=== PATIENT | female | born 1975 | race Caucasian/White ===

== ENCOUNTER 2020-12-20 10:16 | Inpatient (IN) | payer MEDICARE ==
[~2020-12-20] VITALS: Ht 157.5 cm; Wt 63.0 kg
[2020-12-20] MEDS ORDERED: PIPERACILLIN/TAZOBACTAM 3.375 GM in SODIUM CHLORIDE 0.9% 50ML 50 ML IV STA (10:20)
[2020-12-20] MEDS ORDERED: SODIUM CHLORIDE 0.9% 1000ML 1,000 ML IV STA (10:20)
[2020-12-20] MEDS ORDERED: SODIUM CHLORIDE 0.9% 100 ML ONE (10:44)
[2020-12-20] MEDS ORDERED: IOPAMIDOL 370 MG/ML 200 ML INFUS..BTL INJ ONE ×2 (10:44→14:09)
[2020-12-20] MEDS ORDERED: SODIUM CHLORIDE 0.9% 250ML 250 ML IV ONE (10:45)
[2020-12-20 11:14] LABS: BASOPHILS % 0.3 % (0.0-1.0); EOSINOPHILS % 0.7 % (0.0-6.0); HEMATOCRIT 24.7 % (34.2-44.1); HEMOGLOBIN 8.2 g/dL (12.0-16.0); LYMPHOCYTES # (AUTO) 0.7 (1.0-3.2); LYMPHOCYTES % 12.1 % (18.0-39.1); MEAN CORPUSCULAR HEMOGLOBIN 32.9 pg (28-32); MEAN CORPUSCULAR HGB CONC 33.2 g/dL (31-35); MEAN CORPUSCULAR VOLUME 99.2 fL (81-99); MONOCYTES # (AUTO) 0.3 (0.2-0.8); MONOCYTES % 5.6 % (4.4-11.3); NEUTROPHILS # (AUTO) 4.6 (2.1-6.9); NEUTROPHILS % 79.6 % (38.7-80.0); PLATELET COUNT 217 x10e3/uL (140-360); RED BLOOD COUNT 2.49 x10e6/uL (3.6-5.1); RED CELL DISTRIBUTION WIDTH 13.2 % (11.7-14.4)
[2020-12-20 11:43] LABS: ALANINE AMINOTRANSFERASE 21 IU/L (0-55); ALBUMIN 3.4 g/dL (3.5-5.0); ALBUMIN/GLOBULIN RATIO 1.4 (0.8-2.0); ALKALINE PHOSPHATASE 44 IU/L (40-150); ANION GAP 14.5 mmol/L (8-16); BLOOD UREA NITROGEN 47 mg/dL (7-26); BUN/CREATININE RATIO 52 (6-25); CALCIUM 7.8 mg/dL (8.4-10.2); CARBON DIOXIDE 17 mmol/L (22-29); CHLORIDE 107 mmol/L (98-107); CREATINE KINASE 14 IU/L (29-168); EST GLOMERULAR FILTRATION RATE 68 ML/MIN (60-); GLUCOSE 163 mg/dL (74-118); LIPASE 16 U/L (8-78); POTASSIUM 3.5 mmol/L (3.5-5.1); SODIUM 135 mmol/L (136-145)
[2020-12-20] MEDS ORDERED: OCTREOTIDE ACETATE 500 MCG in SODIUM CHLORIDE 0.9% 250ML 250 ML IV STA (12:03)
[2020-12-20 12:14] LABS: B-TYPE NATRIURETIC PEPTIDE2 < 10.0 pg/mL (0-100)
[2020-12-20] MEDS ORDERED: ONDANSETRON HCL INJ 2MG/ML 2ML 2 MG/ML VIAL IV PRN (12:15)
[2020-12-20] MEDS ORDERED: SODIUM CHLORIDE 0.9% 250ML 250 ML ONE ×2 (12:49→17:26)
[2020-12-20] MEDS: OCTREOTIDE ACETATE 500 MCG in SODIUM CHLORIDE 0.9% 250ML 249 ML IV SCH ×2 (13:02→22:34)
[2020-12-20 13:10] LABS: INR 0.99; PROTHROMBIN TIME 13.7 seconds (11.9-14.5)
[2020-12-20] MEDS ORDERED: FENTANYL CITRATE/PF 100MCG/2 ML INJ ONE (13:53)
[2020-12-20] MEDS ORDERED: MIDAZOLAM HCL 2 MG/2 ML VIAL ONE (13:53)
[2020-12-20] MEDS ORDERED: LIDOCAINE HCL 2% LOCAL 20 ML VIAL ONE (14:08)
[2020-12-20] MEDS ORDERED: HEPARIN SOD/SOD CHLORIDE 1,000 ML ONE (14:09)
[2020-12-20 15:58] LABS: CREATINE KINASE MB 0.3 ng/mL (0-5.0)
[2020-12-20 16:43] VITALS: BP 105/78
[2020-12-20 17:00] VITALS: BP 90/71
[2020-12-20] MEDS: Pantoprazole IV 40 MG in SODIUM CHLORIDE 0.9% 50ML 50 ML IV SCH ×2 (17:47→22:00)
[2020-12-20 18:00] VITALS: BP 98/67
[2020-12-20] MEDS: MORPHINE SULFATE INJ 4 MG/ML INJ 1ML IV PRN ×2 (18:36→22:46)
[2020-12-20] MEDS: ONDANSETRON HCL INJ 2MG/ML 2ML 2 MG/ML VIAL IV PRN (19:13)
[2020-12-20] MEDS ORDERED: ZOLPIDEM TARTRATE 5 MG TAB PO PRN (21:00)
[2020-12-20 23:27] LABS: FERRITIN 172.31 ng/mL (4.63-204.00)
[2020-12-21] VITALS (7 sets, daily range): BP systolic 94–109; BP diastolic 57–81
[2020-12-21 00:10] LABS: BASOPHILS % 0.6 % (0.0-1.0); EOSINOPHILS # (AUTO) 0.1 (0.0-0.4); EOSINOPHILS % 2.3 % (0.0-6.0); HEMATOCRIT 27.6 % (34.2-44.1); HEMOGLOBIN 9.2 g/dL (12.0-16.0); LYMPHOCYTES # (AUTO) 0.7 (1.0-3.2); LYMPHOCYTES % 13.9 % (18.0-39.1); MEAN CORPUSCULAR HEMOGLOBIN 31.9 pg (28-32); MEAN CORPUSCULAR HGB CONC 33.3 g/dL (31-35); MEAN CORPUSCULAR VOLUME 95.8 fL (81-99); MONOCYTES # (AUTO) 0.4 (0.2-0.8); MONOCYTES % 9.1 % (4.4-11.3); NEUTROPHILS # (AUTO) 3.4 (2.1-6.9); NEUTROPHILS % 72.2 % (38.7-80.0); PLATELET COUNT 146 x10e3/uL (140-360); RED BLOOD COUNT 2.88 x10e6/uL (3.6-5.1); RED CELL DISTRIBUTION WIDTH 14.5 % (11.7-14.4)
[2020-12-21 00:23] LABS: CREATINE KINASE 15 IU/L (29-168)
[2020-12-21] MEDS: ONDANSETRON HCL INJ 2MG/ML 2ML 2 MG/ML VIAL IV PRN ×3 (00:43→14:35)
[2020-12-21] MEDS: Pantoprazole IV 40 MG in SODIUM CHLORIDE 0.9% 50ML 50 ML IV SCH ×5 (02:33→22:21)
[2020-12-21] MEDS: PROMETHAZINE 25MG/ NS 50ML (IV) IV PRN ×3 (04:23→18:51)
[2020-12-21] MEDS ORDERED: PROMETHAZINE 25MG/SOD CHL 0.9% 50 ML IV ONE (04:31)
[2020-12-21 05:19] LABS: BASOPHILS % 0.5 % (0.0-1.0); EOSINOPHILS # (AUTO) 0.1 (0.0-0.4); EOSINOPHILS % 2.8 % (0.0-6.0); HEMATOCRIT 26.3 % (34.2-44.1); HEMOGLOBIN 8.6 g/dL (12.0-16.0); LYMPHOCYTES # (AUTO) 0.6 (1.0-3.2); LYMPHOCYTES % 15.2 % (18.0-39.1); MEAN CORPUSCULAR HEMOGLOBIN 31.5 pg (28-32); MEAN CORPUSCULAR HGB CONC 32.7 g/dL (31-35); MEAN CORPUSCULAR VOLUME 96.3 fL (81-99); MONOCYTES # (AUTO) 0.3 (0.2-0.8); MONOCYTES % 7.5 % (4.4-11.3); NEUTROPHILS # (AUTO) 2.8 (2.1-6.9); NEUTROPHILS % 71.9 % (38.7-80.0); PLATELET COUNT 137 x10e3/uL (140-360); RED BLOOD COUNT 2.73 x10e6/uL (3.6-5.1); RED CELL DISTRIBUTION WIDTH 14.8 % (11.7-14.4)
[2020-12-21 05:31] LABS: ALBUMIN 3.2 g/dL (3.5-5.0); ALBUMIN/GLOBULIN RATIO 1.7 (0.8-2.0); CALCIUM 7.6 mg/dL (8.4-10.2); CREATININE, SERUM 0.67 mg/dL (0.57-1.11)
[2020-12-21] MEDS: OCTREOTIDE ACETATE 500 MCG in SODIUM CHLORIDE 0.9% 250ML 249 ML IV SCH ×2 (08:30→18:30)
[2020-12-21] MEDS: MORPHINE SULFATE INJ 4 MG/ML INJ 1ML IV PRN ×3 (08:41→19:27)
[2020-12-21] MEDS: FOLIC ACID 1 MG TAB PO SCH (09:00)
[2020-12-21] MEDS ORDERED: DICYCLOMINE HCL10 MG PO (11:07)
[2020-12-21] MEDS ORDERED: FLUOXETINE HCL20 MG PO (11:07)
[2020-12-21] MEDS ORDERED: BUSPIRONE HCL10 MG PO (11:07)
[2020-12-21] MEDS ORDERED: TOPAMAX100 MG PO (11:07)
[2020-12-21] MEDS ORDERED: NEURONTIN400 MG PO (11:07)
[2020-12-21] MEDS ORDERED: QUETIAPINE FUM100 MG PO (11:07)
[2020-12-21] MEDS ORDERED: KEPPRA500 MG PO (11:07)
[2020-12-21] MEDS ORDERED: PROPOFOL IV EMULSION 10 MG/ML 20 ML VIAL ONE (12:25)
[2020-12-21] MEDS ORDERED: LIDOCAINE HCL 2% LOCAL INJ 5 ML SDV VIAL INJ ONE (12:25)
[2020-12-21] MEDS ORDERED: FENTANYL CITRATE/PF 100MCG/2 ML INJ ONE (13:11)
[2020-12-21] MEDS ORDERED: MIDAZOLAM HCL 2 MG/2 ML VIAL ONE (13:11)
[2020-12-21 20:04] LABS: CLARITY,URINE SL CLOUDY (CLEAR); COLOR,URINE YELLOW (YELLOW); KETONES,URINE NEGATIVE (NEGATIVE); LEUKOCYTE ESTERASE ,URINE NEGATIVE (NEGATIVE); NITRITE,URINE NEGATIVE (NEGATIVE); PROTEIN,URINE DIPSTICK NEGATIVE (NEGATIVE); URINE UROBILINOGEN 0.2 mg/dL (0.2 - 1)
[2020-12-21 20:07] LABS: BACTERIA,URINE RARE /HPF; EPITHELIAL CELLS,URINE FEW /LPF; MUCUS,URINE FEW (RARE); RBC,URINE 0-5 /HPF (0-5); WBC,URINE (MAN) 0-5 /HPF (0-5)
[2020-12-21] MEDS: LEVETIRACETAM 500 MG TAB PO SCH (20:45)
[2020-12-21] MEDS: QUETIAPINE FUMARATE 100 MG TAB PO SCH (20:45)
[2020-12-21] MEDS: GABAPENTIN 300 MG CAP PO SCH (20:45)
[2020-12-21] MEDS: TOPIRAMATE 100 MG TAB PO SCH (21:12)
[2020-12-22] VITALS (11 sets, daily range): BP systolic 83–105; BP diastolic 53–69
[2020-12-22] MEDS: Pantoprazole IV 40 MG in SODIUM CHLORIDE 0.9% 50ML 50 ML IV SCH ×5 (03:14→23:15)
[2020-12-22] MEDS: OCTREOTIDE ACETATE 500 MCG in SODIUM CHLORIDE 0.9% 250ML 249 ML IV SCH ×4 (04:30→23:45)
[2020-12-22 06:27] LABS: BASOPHILS % 0.3 % (0.0-1.0); EOSINOPHILS # (AUTO) 0.2 (0.0-0.4); EOSINOPHILS % 5.9 % (0.0-6.0); HEMOGLOBIN 7.3 g/dL (12.0-16.0); LYMPHOCYTES # (AUTO) 0.9 (1.0-3.2); LYMPHOCYTES % 27.6 % (18.0-39.1); MEAN CORPUSCULAR HEMOGLOBIN 32.6 pg (28-32); MEAN CORPUSCULAR HGB CONC 32.7 g/dL (31-35); MONOCYTES # (AUTO) 0.3 (0.2-0.8); MONOCYTES % 7.7 % (4.4-11.3); NEUTROPHILS # (AUTO) 1.8 (2.1-6.9); PLATELET COUNT 124 x10e3/uL (140-360); RED BLOOD COUNT 2.24 x10e6/uL (3.6-5.1); RED CELL DISTRIBUTION WIDTH 15.6 % (11.7-14.4)
[2020-12-22 06:29] LABS: MEAN CORPUSCULAR VOLUME 99.6 fL (81-99)
[2020-12-22 06:30] LABS: HEMATOCRIT 22.3 % (34.2-44.1)
[2020-12-22 06:40] LABS: ALBUMIN 2.8 g/dL (3.5-5.0); ALBUMIN/GLOBULIN RATIO 1.6 (0.8-2.0); ANION GAP 10.8 mmol/L (8-16); CALCIUM 7.5 mg/dL (8.4-10.2); CREATININE, SERUM 0.7 mg/dL (0.57-1.11); MAGNESIUM 1.9 MG/DL (1.3-2.1); POTASSIUM 3.8 mmol/L (3.5-5.1)
[2020-12-22] MEDS: MORPHINE SULFATE INJ 4 MG/ML INJ 1ML IV PRN ×3 (07:26→22:00)
[2020-12-22] MEDS: ONDANSETRON HCL INJ 2MG/ML 2ML 2 MG/ML VIAL IV PRN (07:26)
[2020-12-22] MEDS: PROMETHAZINE 25MG/ NS 50ML (IV) IV PRN ×3 (08:34→20:34)
[2020-12-22] MEDS: FLUOXETINE HCL 20 MG CAP PO SCH ×2 (09:20→17:00)
[2020-12-22] MEDS: LEVETIRACETAM 500 MG TAB PO SCH ×2 (09:20→17:00)
[2020-12-22] MEDS: FOLIC ACID 1 MG TAB PO SCH (09:20)
[2020-12-22] MEDS: BUSPIRONE HCL 10 MG TABLET PO SCH ×3 (09:20→20:34)
[2020-12-22] MEDS: GABAPENTIN 300 MG CAP PO SCH ×3 (09:20→20:34)
[2020-12-22] MEDS: QUETIAPINE FUMARATE 100 MG TAB PO SCH ×2 (09:20→17:00)
[2020-12-22] MEDS: TOPIRAMATE 100 MG TAB PO SCH ×2 (10:27→17:00)
[2020-12-22] MEDS ORDERED: IOPAMIDOL 370 MG/ML 200 ML INFUS..BTL INJ ONE ×3 (10:35→15:56)
[2020-12-22] MEDS ORDERED: SODIUM CHLORIDE 0.9% 100 ML ONE (10:35)
[2020-12-22] MEDS ORDERED: SODIUM CHLORIDE 0.9% 250ML 250 ML ONE ×2 (14:29→22:02)
[2020-12-22] MEDS ORDERED: SODIUM CHLORIDE 0.9% 1000ML 1,000 ML IV ONE (15:15)
[2020-12-22] MEDS ORDERED: MIDAZOLAM HCL 2 MG/2 ML VIAL ONE (15:45)
[2020-12-22] MEDS ORDERED: FENTANYL CITRATE/PF 100MCG/2 ML INJ ONE (15:45)
[2020-12-22] MEDS ORDERED: HEPARIN SOD/SOD CHLORIDE 1,000 ML ONE (15:55)
[2020-12-22] MEDS ORDERED: LIDOCAINE HCL 2% LOCAL 20 ML VIAL ONE (15:57)
[2020-12-22] MEDS ORDERED: HYDROCODONE/APAP 5MG-325MG TAB ONE (18:00)
[2020-12-22] MEDS ORDERED: HYDROCODONE/APAP 5MG-325MG TAB PO ONE (18:00)
[2020-12-22 20:03] LABS: HEMATOCRIT 23.6 % (34.2-44.1); HEMOGLOBIN 7.6 g/dL (12.0-16.0)
[2020-12-23] VITALS (8 sets, daily range): BP systolic 89–131; BP diastolic 54–77
[2020-12-23] MEDS: PROMETHAZINE 25MG/ NS 50ML (IV) IV PRN ×4 (01:00→22:45)
[2020-12-23] MEDS: MORPHINE SULFATE INJ 4 MG/ML INJ 1ML IV PRN ×5 (02:27→20:36)
[2020-12-23] MEDS: OCTREOTIDE ACETATE 500 MCG in SODIUM CHLORIDE 0.9% 250ML 249 ML IV SCH ×3 (03:24→22:07)
[2020-12-23] MEDS: Pantoprazole IV 40 MG in SODIUM CHLORIDE 0.9% 50ML 50 ML IV SCH ×4 (03:24→22:04)
[2020-12-23] MEDS: FOLIC ACID 1 MG TAB PO SCH (08:00)
[2020-12-23] MEDS: GABAPENTIN 300 MG CAP PO SCH ×3 (08:00→21:16)
[2020-12-23] MEDS: BUSPIRONE HCL 10 MG TABLET PO SCH ×3 (08:00→21:16)
[2020-12-23] MEDS: TOPIRAMATE 100 MG TAB PO SCH ×2 (08:00→18:17)
[2020-12-23] MEDS: LEVETIRACETAM 500 MG TAB PO SCH ×2 (08:00→18:17)
[2020-12-23] MEDS: FLUOXETINE HCL 20 MG CAP PO SCH ×2 (08:00→18:17)
[2020-12-23] MEDS: QUETIAPINE FUMARATE 100 MG TAB PO SCH ×2 (08:00→18:17)
[2020-12-23 08:41] LABS: HEMATOCRIT 26.7 % (34.2-44.1); HEMOGLOBIN 8.6 g/dL (12.0-16.0)
[2020-12-23 14:31] LABS: HEMATOCRIT 29.4 % (34.2-44.1); HEMOGLOBIN 9.4 g/dL (12.0-16.0)
[2020-12-23 14:51] LABS: % IRON SATURATION 8 % (15-50); IRON 22 ug/dL (50-170); TOTAL IRON BINDING CAPACITY 260 ug/dL (261-478); TRANSFERRIN 186 mg/dL (180-382)
[2020-12-23 20:51] LABS: HEMATOCRIT 27.4 % (34.2-44.1); HEMOGLOBIN 8.7 g/dL (12.0-16.0)
[2020-12-24] VITALS (8 sets, daily range): BP systolic 93–174; BP diastolic 60–90
[2020-12-24] MEDS: Pantoprazole IV 40 MG in SODIUM CHLORIDE 0.9% 50ML 50 ML IV SCH ×5 (03:32→21:42)
[2020-12-24] MEDS: PROMETHAZINE 25MG/ NS 50ML (IV) IV PRN ×3 (04:03→21:30)
[2020-12-24] MEDS: MORPHINE SULFATE INJ 4 MG/ML INJ 1ML IV PRN ×4 (05:45→18:10)
[2020-12-24 06:17] LABS: ANION GAP 9.9 mmol/L (8-16); CALCIUM 7.5 mg/dL (8.4-10.2); CREATININE, SERUM 0.61 mg/dL (0.57-1.11); POTASSIUM 3.9 mmol/L (3.5-5.1)
[2020-12-24 08:47] LABS: BASOPHILS % 0.5 % (0.0-1.0); EOSINOPHILS # (AUTO) 0.2 (0.0-0.4); EOSINOPHILS % 3.7 % (0.0-6.0); LYMPHOCYTES # (AUTO) 0.7 (1.0-3.2); MEAN CORPUSCULAR HEMOGLOBIN 31.4 pg (28-32); MEAN CORPUSCULAR HGB CONC 32.1 g/dL (31-35); MEAN CORPUSCULAR VOLUME 97.6 fL (81-99); MONOCYTES # (AUTO) 0.4 (0.2-0.8); MONOCYTES % 9.4 % (4.4-11.3); NEUTROPHILS # (AUTO) 2.7 (2.1-6.9); NEUTROPHILS % 66.2 % (38.7-80.0); PLATELET COUNT 138 x10e3/uL (140-360); RED BLOOD COUNT 2.87 x10e6/uL (3.6-5.1)
[2020-12-24] MEDS: TOPIRAMATE 100 MG TAB PO SCH ×2 (08:51→18:13)
[2020-12-24] MEDS: OCTREOTIDE ACETATE 500 MCG in SODIUM CHLORIDE 0.9% 250ML 249 ML IV SCH ×2 (08:51→16:20)
[2020-12-24] MEDS: FLUOXETINE HCL 20 MG CAP PO SCH ×2 (08:51→18:13)
[2020-12-24] MEDS: FOLIC ACID 1 MG TAB PO SCH (08:51)
[2020-12-24] MEDS: BUSPIRONE HCL 10 MG TABLET PO SCH ×3 (08:51→22:00)
[2020-12-24] MEDS: GABAPENTIN 300 MG CAP PO SCH ×3 (08:51→21:30)
[2020-12-24] MEDS: QUETIAPINE FUMARATE 100 MG TAB PO SCH ×2 (08:51→18:13)
[2020-12-24] MEDS: LEVETIRACETAM 500 MG TAB PO SCH ×2 (08:51→18:13)
[2020-12-24] MEDS ORDERED: TOPIRAMATE 100 MG TAB PO SCH (09:00)
[2020-12-24] MEDS: IRON SUCROSE 100 MG in SODIUM CHLORIDE 0.9% 100 ML 100 ML IV SCH (14:08)
[2020-12-25] VITALS (8 sets, daily range): BP systolic 90–110; BP diastolic 53–69
[2020-12-25] MEDS: MORPHINE SULFATE INJ 4 MG/ML INJ 1ML IV PRN ×5 (00:15→23:30)
[2020-12-25] MEDS: ONDANSETRON HCL INJ 2MG/ML 2ML 2 MG/ML VIAL IV PRN (00:49)
[2020-12-25] MEDS: Pantoprazole IV 40 MG in SODIUM CHLORIDE 0.9% 50ML 50 ML IV SCH ×5 (01:15→21:15)
[2020-12-25] MEDS: PROMETHAZINE 25MG/ NS 50ML (IV) IV PRN ×3 (02:00→17:25)
[2020-12-25] MEDS: OCTREOTIDE ACETATE 500 MCG in SODIUM CHLORIDE 0.9% 250ML 249 ML IV SCH ×2 (02:30→12:30)
[2020-12-25 05:09] LABS: BASOPHILS % 0.4 % (0.0-1.0); EOSINOPHILS # (AUTO) 0.2 (0.0-0.4); EOSINOPHILS % 4.7 % (0.0-6.0); HEMATOCRIT 26.7 % (34.2-44.1); HEMOGLOBIN 8.5 g/dL (12.0-16.0); LYMPHOCYTES # (AUTO) 0.6 (1.0-3.2); LYMPHOCYTES % 13.5 % (18.0-39.1); MEAN CORPUSCULAR HEMOGLOBIN 31.1 pg (28-32); MEAN CORPUSCULAR HGB CONC 31.8 g/dL (31-35); MEAN CORPUSCULAR VOLUME 97.8 fL (81-99); MONOCYTES # (AUTO) 0.5 (0.2-0.8); MONOCYTES % 9.8 % (4.4-11.3); NEUTROPHILS # (AUTO) 3.3 (2.1-6.9); NEUTROPHILS % 70.3 % (38.7-80.0); PLATELET COUNT 136 x10e3/uL (140-360); RED BLOOD COUNT 2.73 x10e6/uL (3.6-5.1); RED CELL DISTRIBUTION WIDTH 17.8 % (11.7-14.4)
[2020-12-25 05:20] LABS: ALBUMIN 2.7 g/dL (3.5-5.0); ALBUMIN/GLOBULIN RATIO 1.1 (0.8-2.0); ANION GAP 11.1 mmol/L (8-16); CALCIUM 8.2 mg/dL (8.4-10.2); CREATININE, SERUM 0.65 mg/dL (0.57-1.11); MAGNESIUM 1.6 MG/DL (1.3-2.1); POTASSIUM 4.1 mmol/L (3.5-5.1)
[2020-12-25] MEDS: QUETIAPINE FUMARATE 100 MG TAB PO SCH ×2 (09:00→17:00)
[2020-12-25] MEDS: FLUOXETINE HCL 20 MG CAP PO SCH ×2 (09:00→17:00)
[2020-12-25] MEDS: FOLIC ACID 1 MG TAB PO SCH (09:00)
[2020-12-25] MEDS: BUSPIRONE HCL 10 MG TABLET PO SCH ×3 (09:00→21:00)
[2020-12-25] MEDS: GABAPENTIN 300 MG CAP PO SCH ×3 (09:00→21:00)
[2020-12-25] MEDS: LEVETIRACETAM 500 MG TAB PO SCH ×2 (09:00→17:00)
[2020-12-25] MEDS: TOPIRAMATE 100 MG TAB PO SCH ×2 (09:00→17:00)
[2020-12-25] MEDS: IRON SUCROSE 100 MG in SODIUM CHLORIDE 0.9% 100 ML 100 ML IV SCH (10:00)
[2020-12-26] MEDS: OCTREOTIDE ACETATE 500 MCG in SODIUM CHLORIDE 0.9% 250ML 249 ML IV SCH (00:12)
[2020-12-26 00:15] VITALS: BP 100/59
[2020-12-26] MEDS: PROMETHAZINE 25MG/ NS 50ML (IV) IV PRN ×2 (01:30→06:30)
[2020-12-26] MEDS: Pantoprazole IV 40 MG in SODIUM CHLORIDE 0.9% 50ML 50 ML IV SCH ×2 (02:15→07:15)
[2020-12-26] MEDS: MORPHINE SULFATE INJ 4 MG/ML INJ 1ML IV PRN (03:50)
[2020-12-26 04:53] LABS: BASOPHILS % 0.7 % (0.0-1.0); EOSINOPHILS # (AUTO) 0.2 (0.0-0.4); HEMATOCRIT 25.2 % (34.2-44.1); LYMPHOCYTES % 23.3 % (18.0-39.1); MEAN CORPUSCULAR HGB CONC 31.7 g/dL (31-35); MEAN CORPUSCULAR VOLUME 97.7 fL (81-99); MONOCYTES # (AUTO) 0.5 (0.2-0.8); NEUTROPHILS # (AUTO) 2.5 (2.1-6.9); NEUTROPHILS % 57.2 % (38.7-80.0); PLATELET COUNT 156 x10e3/uL (140-360); RED BLOOD COUNT 2.58 x10e6/uL (3.6-5.1); RED CELL DISTRIBUTION WIDTH 17.7 % (11.7-14.4)
[2020-12-26 05:09] LABS: AMYLASE 16 U/L (25-125); LIPASE 10 U/L (8-78)
[2020-12-26 05:19] VITALS: BP 109/68
[2020-12-26 07:46] VITALS: BP 116/80
[2020-12-26] MEDS ORDERED: ONDANSETRON HCL 4 MG ORAL DISINTEGRATING TAB PO PRN (08:15)
[2020-12-26] MEDS: FOLIC ACID 1 MG TAB PO SCH (08:22)
[2020-12-26] MEDS: LEVETIRACETAM 500 MG TAB PO SCH (08:23)
[2020-12-26] MEDS: FLUOXETINE HCL 20 MG CAP PO SCH (08:23)
[2020-12-26] MEDS: GABAPENTIN 300 MG CAP PO SCH (08:23)
[2020-12-26] MEDS: QUETIAPINE FUMARATE 100 MG TAB PO SCH (08:24)
[2020-12-26] MEDS: TOPIRAMATE 100 MG TAB PO SCH (08:24)
[2020-12-26] MEDS ORDERED: TRAMADOL HCL 50 MG TAB PO ONE (08:45)
[2020-12-26 08:51] VITALS: BP 116/80
[2020-12-26 08:52] VITALS: BP 116/80
[2020-12-26 08:54] VITALS: BP 116/80
== END 2020-12-26 08:50 | disposition home or self-care (01) | DRG 356 ==
LOC: ER 10:25 → ERHOLD 12:18 → MED/SURG2 12-21 07:39
PROVIDERS: ADMIT Internal Medicine; ATTEND Internal Medicine
PROC: 30233N1 Transfusion of Nonautologous Red Blood Cells into Peripheral Vein, Percutaneous Approach (ICD-10-PCS; 2020-12-20)
PROC: 0DJ08ZZ Inspection of Upper Intestinal Tract, Via Natural or Artificial Opening Endoscopic (ICD-10-PCS; 2020-12-21)
PROC: 02HV33Z Insertion of Infusion Device into Superior Vena Cava, Percutaneous Approach (ICD-10-PCS; 2020-12-23)
PROC: 04L33DZ Occlusion of Hepatic Artery with Intraluminal Device, Percutaneous Approach (ICD-10-PCS; principal; 2020-12-26)
DX: K26.4 Chronic or unspecified duodenal ulcer with hemorrhage (principal); R57.8 Other shock; D61.818 Other pancytopenia; D62 Acute posthemorrhagic anemia; K21.9 Gastro-esophageal reflux disease without esophagitis; F41.9 Anxiety disorder, unspecified; F43.10 Post-traumatic stress disorder, unspecified; E53.8 Deficiency of other specified B group vitamins; Z98.84 Bariatric surgery status
CPT/HCPCS: 36415; 36569; 43239; 71045; 74174; 74470; 75726; 75774; 80048; 80053; 81001; 82150; 82550; 82553; 82607; 82608; 82728; 82746; 83540; 83605; 83690; 83735; 83880; 84466; 84484; 84702; 85014; 85018; 85025; 85045; 85610; 86850; 86900; 86920; 87040; 93005; 99285; J1756; J2001; J2250; J2270; J2353; J2405; J2543; J2550; J3010; J7030; J7050; P9016; Q9967; U0002

== ENCOUNTER 2021-08-31 18:40 | Emergency (ER) | payer MEDICARE ==
[~2021-08-31] VITALS: Ht 157.5 cm; Wt 63.0 kg
[~2021-08-31 18:40] MED LIST: BUSPIRONE HCL10 MG PO; DICYCLOMINE HCL10 MG PO; FLUOXETINE HCL20 MG PO; KEPPRA500 MG PO; NEURONTIN400 MG PO; QUETIAPINE FUM100 MG PO; TOPAMAX100 MG PO
[2021-08-31] MEDS ORDERED: KETOROLAC TROMETHAMINE 30 MG/ML VIAL IM STA (19:26)
[2021-08-31] MEDS ORDERED: KETOROLAC TROMETHAMINE 30 MG/ML VIAL IM PRN (19:30)
[2021-08-31] MEDS ORDERED: CYCLOBENZAPRINE HCL 10 MG TAB PO ONE ×2 (19:30)
[2021-08-31] MEDS ORDERED: CYCLOBENZAPRINE HCL 10 MG TAB ONE (19:31)
[2021-08-31] MEDS ORDERED: KETOROLAC TROMETHAMINE 30 MG/ML VIAL ONE (19:31)
== END 2021-08-31 19:31 | disposition home or self-care (01) ==
LOC: ER 19:19
DX: M54.41 Lumbago with sciatica, right side (principal); G40.909 Epilepsy, unspecified, not intractable, without status epilepticus; Z87.19 Personal history of other diseases of the digestive system; Z98.84 Bariatric surgery status
CPT/HCPCS: 99282; J1885